=== PATIENT | male | born 1970 | race Two or more races ===

== ENCOUNTER 2020-01-25 06:49 | Day surgery (SDC) | payer OTHER ==
[~2020-01-25] VITALS: Ht 167.6 cm; Wt 69.9 kg
== END 2020-01-26 01:50 | disposition home or self-care (01) ==
LOC: ER 06:49 → CIR.AMB 13:10
PROVIDERS: ATTEND Colon & Rectal Surgery
DX: K60.3 Anal fistula (principal); K60.1 Chronic anal fissure; K64.5 Perianal venous thrombosis; Z20.828 Contact with and (suspected) exposure to other viral communicable diseases